=== PATIENT | female | born 1965 | race Caucasian/White ===

== ENCOUNTER 2017-11-22 | Emergency (ER) | payer BC ==
[2017-11-22] MEDS ORDERED: SODIUM CHLORIDE 0.9% 1000ML 1,000 ML IV ONE (00:30)
[2017-11-22 00:46] LABS: BASOPHILS % (AUTO) 1 % (0-3); EOSINOPHILS % (AUTO) 2 % (0-9); HEMATOCRIT 48 % (35-47); HEMOGLOBIN 15.6 gm/dl (12.0-15.5); LYMPHOCYTES % (AUTO) 16.8 % (10-50); MEAN CORPUSCULAR HEMOGLOBIN 27.4 pg (27.0-32.0); MEAN CORPUSCULAR HGB CONC 32.4 gm/dl (32.0-36.0); MEAN CORPUSCULAR VOLUME 85 fL (81-99); MONOCYTES % (AUTO) 5.8 % (0-12); NEUTROPHILS % (AUTO) 74.6 % (37-80)
[2017-11-22] MEDS ORDERED: ONDANSETRON HCL 4 MG/2 ML SOL IV ONE (00:50)
[2017-11-22] MEDS ORDERED: ONDANSETRON HCL 4 MG/2 ML SOL ONE (00:51)
[2017-11-22 00:58] LABS: ALBUMIN 3.7 gm/dl (3.4-5.0); BILIRUBIN,TOTAL 0.6 mg/dl (0.2-1.0); CARBON DIOXIDE 27.6 mEq/L (21-32); CREATININE 0.8 mg/dl (0.60-1.00); MAGNESIUM 1.9 mg/dl (1.8-2.4); POTASSIUM 3.3 mMol/L (3.5-5.1); TOTAL PROTEIN 7.3 gm/dl (6.4-8.2)
[2017-11-22] MEDS ORDERED: POTASSIUM CHLORIDE 10 MEQ TER PO ONE (00:59)
[2017-11-22] MEDS ORDERED: POTASSIUM CHLORIDE 10 MEQ TER ONE (01:02)
[2017-11-22 01:26] VITALS: TEMP 96.6
[2017-11-22] MEDS ORDERED: SODIUM CHLORIDE 0.9% FLUSH 10 ML SOL IV PRN (01:29)
[2017-11-22 02:09] VITALS: BP 118/67; PULSE 79; RESP 15; O2SAT 96
== END 2017-11-22 01:55 | disposition home or self-care (01) ==
LOC: ED
DX: E86.0 Dehydration (principal); E87.6 Hypokalemia
CPT/HCPCS: 36415; 70450; 80053; 83735; 85025; 96365; 96374; 99284; 99285; J2405; A9270-GY